=== PATIENT | male | born 1930 | race Hispanic/Latino ===

== ENCOUNTER 2018-03-27 02:30 | Inpatient (IN) | payer MEDICARE, BC ==
[2018-03-27 02:40] VITALS: BMI 28.3
[2018-03-27] MEDS ORDERED: Sodium Chloride 0.9% 1,000 ML IV STA ×2 (03:04→06:22)
--- NOTE | 2018-03-27 03:10 | ED PDOC ---
Arrival/HPI - General Chief Complaint: Medical Clearance Time Seen by Provider: 03/27/18 02:35 Historian: Patient, Spouse - History of Present Illness Narrative History of Present Illness (Text): 03/27/18 03:06 An 87 year old male, whose past medical history includes hypertension and diabetes, presents to the Emergency Department with a complaint of fleeting left sided chest pain. Patients notes that he has a history of feeling congested with a cough and subjective fever. He presents for further evaluation after having difficulty ambulating which the patient believe may be due to his rheumatoid arthritis. The patient denies chills, headache, dizziness, sore throat, shortness of breath, dyspnea on exertion, abdominal pain, nausea, vomiting, diarrhea, neck/back pain, urinary/bowel changes or any other complaint. PMD: Dr. Melendez Time/Duration: Prior to Arrival Symptom Onset: Sudden Symptom Course: Resolved Activities at Onset: Rest, Light Context: Home Past Medical History - Provider Review Nursing Documentation Reviewed: Yes - Infectious Disease Hx of Infectious Diseases: None - Tetanus Immunization Tetanus Immunization: Unknown - Cardiac Hx Hypertension: Yes - Endocrine/Metabolic Hx Hypothyroidism: Yes - Hematological/Oncological Hx Blood Transfusions: No Hx Blood Transfusion Reaction: No - Musculoskeletal/Rheumatological Hx Falls: No - Psychiatric Hx Substance Use: No - Surgical History Hx Appendectomy: Yes Hx Cardiac Catheterization: Yes Hx Coronary Stent: Yes Hx Inguinal Hernia Repair: (PRESENTS AT THIS TIME W/ INCARCERATED HERNIA) - Anesthesia Hx Anesthesia Reactions: No Hx Malignant Hyperthermia: No - Suicidal Assessment Feels Threatened In Home Enviroment: No Family/Social History - Physician Review Nursing Documentation Reviewed: Yes Family/Social History: No Known Family HX Smoking Status: Former Smoker Hx Alcohol Use: (OCCASIONAL) Hx Substance Use: No Hx Substance Use Treatment: No Allergies/Home Meds Allergies/Adverse Reactions: Allergies No Known Allergies Allergy (Verified 05/19/12 15:19) Home Medications: Home Meds Medication Instructions Recorded Confirmed Atorvastatin [Lipitor] 20 mg PO DAILY 05/19/12 03/27/18 Furosemide [Lasix] 40 mg PO DAILY 05/19/12 03/27/18 Glimepiride 4 mg PO DAILY 05/19/12 03/27/18 Levothyroxine Sodium [Levoxyl] 0.05 mg PO DAILY 05/19/12 03/27/18 Propranolol HCl [Propranolol ER] 60 mg PO DAILY 05/19/12 03/27/18 Quinapril Hydrochloride [Quinapril] 20 mg PO DAILY 05/19/12 03/27/18 Methotrexate [Methotrexate] 2.5 mg PO WED 03/27/18 03/27/18 Review of Systems - Physician Review All systems were reviewed & negative as marked: Yes - Review of Systems Constitutional: Fevers Respiratory: absent: SOB Cardiovascular: Chest Pain (Left sided chest pain). absent: CHA Gastrointestinal: absent: Abdominal Pain, Stool Changes, Diarrhea, Nausea, Vomiting Genitourinary Male: absent: Urinary Output Changes Musculoskeletal: absent: Back Pain, Neck Pain Neurological: Other (Difficulty ambulating). absent: Headache, Dizziness Physical Exam Vital Signs Reviewed: Yes Vital Signs Temp Pulse Resp BP Pulse Ox 03/27/18 06:02 99.8 F H 78 16 115/50 L 96 03/27/18 03:24 103.2 F H 03/27/18 03:13 103.2 F H 03/27/18 02:36 98.8 F 80 20 136/64 96 Temperature: Afebrile Blood Pressure: Normal Pulse: Regular Respiratory Rate: Normal Appearance: Positive for: Well-Appearing, Non-Toxic, Comfortable Pain Distress: None Mental Status: Positive for: Alert and Oriented X 3 - Systems Exam Head: Present: Atraumatic, Normocephalic Pupils: Present: PERRL Extroacular Muscles: Present: EOMI Conjunctiva: Present: Normal Mouth: Present: Moist Mucous Membranes Neck: Present: Normal Range of Motion. No: Meningeal Signs Respiratory/Chest: Present: Good Air Exchange, Rhonchi. No: Respiratory Distress, Accessory Muscle Use Cardiovascular: Present: Regular Rate and Rhythm, Normal S1, S2. No: Murmurs Abdomen: No: Tenderness, Distention, Peritoneal Signs Back: Present: Normal Inspection Upper Extremity: Present: Normal Inspection, Normal ROM (Full ROM). No: Cyanosis, Edema Lower Extremity: Present: Normal Inspection, Normal ROM (Full ROM). No: Edema Neurological: Present: GCS=15, CN II-XII Intact, Speech Normal Skin: Present: Warm, Dry, Normal Color. No: Rashes Psychiatric: Present: Alert, Oriented x 3, Normal Insight, Normal Concentration Medical Decision Making ED Course and Treatment: 03/27/18 03:12 Impression: An 87 year old male presents to the Emergency Department with a complaint of difficulty ambulating and left sided chest pain. Plan: -- EKG -- Chest X- Ray -- Labs -- Blood/ Urine Culture -- Urinalysis -- Tylenol and IV Fluids -- Reassess and disposition Progress Notes: 03/27/18 03:16 EKG: Ordered, reviewed, and independently interpreted the EKG. Rate : 94 BPM Rhythm : NSR Interpretation : Occasional PVCs, non- specific T wave changes. Comparison : No previous EKG for comparison. XR Chest, 1 View Dictated and Authenticated by: Anisa Gallagher MD 03/27/2018 5:58 AM Eastern Time ([place] & [place]) IMPRESSION: Mild bibasilar atelectasis/infiltrate or fibrosis. 03/27/18 06:26 Case was d/w who accepted to her service.Requested on consult. - Lab Interpretations Lab Results: 03/27/18 03:12 03/27/18 03:12 Lab Results 03/27/18 03:12: Sodium 142, Chloride 106, Potassium 3.5 L, Carbon Dioxide 24, Anion Gap 16, BUN 21, Creatinine 1.0, Est GFR ( Amer) > 60, Est GFR (Non- Af Amer) > 60, Random Glucose 165 H, Calcium 8.7, Phosphorus 2.2 L, Magnesium 1.7, Total Bilirubin 1.0, AST 18, ALT 15, Alkaline Phosphatase 51, Lactate Dehydrogenase 408, Total Creatine Kinase < 20 L, Troponin I 0.02, Total Protein 6.9, Albumin 3.7, Globulin 3.2, Albumin/Globulin Ratio 1.2 03/27/18 03:12: pO2 60 H, VBG pH 7.39, VBG pCO2 41.0, VBG HCO3 24.8, VBG Total CO2 26.1, VBG O2 Sat (Calc) 94.3 H, VBG Base Excess -0.2 L, VBG Potassium 3.4 L , Sodium 140.0, Chloride 108.0 H, Glucose 166 H, Lactate 1.9, FiO2 21.0, Venous Blood Potassium 3.4 L 03/27/18 03:12: PT 14.8 H, INR 1.29, APTT 29.3 03/27/18 03:12: WBC 16.1 H, RBC 5.02, Hgb 10.3 L, Hct 32.7 L, MCV 65.1 L, MCH 20.5 L, MCHC 31.5, RDW 16.2 H, Plt Count 282, MPV 10.1, Gran % 91.4 H, Lymph % ( Auto) 1.8 L, Sabine % (Auto) 6.6 H, Eos % (Auto) 0.1 L, Baso % (Auto) 0.1, Gran # 14.71 H, Lymph # (Auto) 0.3 L, Sabine # (Auto) 1.1 H, Eos # (Auto) 0.0, Baso # ( Auto) 0.01, Neutrophils % (Manual) 90 H, Band Neutrophils % 2, Lymphocytes % ( Manual) 2 L, Monocytes % (Manual) 5, Eosinophils % (Manual) 1, Platelet Evaluation Normal, Hypochromasia 1+, Poikilocytosis (manual Slight, Anisocytosis (manual) Slight 03/27/18 03:06: Urine Color Yellow, Urine Appearance Clear, Urine pH 6.0, Ur Specific Drain 1.020, Urine Protein Trace H, Urine Glucose (UA) Negative, Urine Ketones Negative, Urine Blood Negative, Urine Nitrate Negative, Urine Bilirubin Negative, Urine Urobilinogen 1.0 H, Ur Leukocyte Esterase Negative, Urine RBC 0 - 2, Urine WBC 0 - 2, Ur Epithelial Cells 0 - 2, Urine Bacteria Rare , Hyaline Casts 0 - 2, Urine Other Mucus I have reviewed the lab results: Yes - RAD Interpretation Radiology Orders: 03/27/18 03:03 CHEST PORTABLE [RAD] Stat - EKG Interpretation Interpreted by ED Physician: Yes Type: 12 lead EKG - Medication Orders Current Medication Orders: Acetaminophen (Tylenol 325mg Tab) 975 mg PO ONCE PRN PRN Reason: Fever >100.4 F Last Admin: 03/27/18 03:24 Dose: 975 mg MAR Pain/Vitals Document 03/27/18 03:24 IT (Rec: 03/27/18 03:24 IT [id number]) Vitals Temperature (97.6 F-99.6 F) 103.2 F Sodium Chloride (Sodium Chloride 0.9%) 1,000 mls @ 100 mls/hr IV .Q10H STA Stop: 03/27/18 16:21 Last Admin: 03/27/18 06:42 Dose: 100 mls/hr eMAR Start Stop Document 03/27/18 06:42 IT (Rec: 03/27/18 06:43 IT [id number]) Intravenous Solution Start Date 03/27/18 Start Time 06:42 Discontinued Medications Sodium Chloride (Sodium Chloride 0.9%) 1,000 mls @ 999 mls/hr IV .Q1H1M STA Stop: 03/27/18 04:04 Last Admin: 03/27/18 03:24 Dose: 999 mls/hr eMAR Start Stop Document 03/27/18 03:24 IT (Rec: 03/27/18 03:24 IT [id number]) Intravenous Solution Start Date 03/27/18 Start Time 03:24 End Date 03/27/18 End time 04:24 Total Infusion Time 60 Ceftriaxone Sodium (Rocephin 1 Gram Ivpb) 1 gm in 100 mls @ 200 mls/hr IV ONCE STA PRN Reason: Protocol Stop: 03/27/18 05:21 Last Admin: 03/27/18 05:08 Dose: 200 mls/hr eMAR Start Stop Document 03/27/18 05:08 IT (Rec: 03/27/18 05:08 IT [id number]) Intravenous Solution Start Date 03/27/18 Start Time 05:08 Azithromycin (Zithromax 500mg In Ns) 500 mg in 250 mls @ 166.667 mls/hr IV STAT STA PRN Reason: Protocol Stop: 03/27/18 06:21 Last Admin: 03/27/18 06:42 Dose: 166.667 mls/hr eMAR Start Stop Document 03/27/18 06:42 IT (Rec: 03/27/18 06:42 IT [id number]) Intravenous Solution Start Date 03/27/18 Start Time 06:42 - Scribe Statement The provider has reviewed the documentation as recorded by the Joel Arroyo Provider Scribe Attestation: All medical record entries made by the Scribe were at my direction and personally dictated by me. I have reviewed the chart and agree that the record accurately reflects my personal performance of the history, physical exam, medical decision making, and the department course for this patient. I have also personally directed, reviewed, and agree with the discharge instructions and disposition. Disposition/Present on Arrival - Present on Arrival Any Indicators Present on Arrival: No History of DVT/PE: No History of Uncontrolled Diabetes: No Urinary Catheter: No History of Decub. Ulcer: No History Surgical Site Infection Following: None - Disposition Have Diagnosis and Disposition been Completed?: Yes Diagnosis: Sepsis, Chest pain, Pneumonia Disposition: HOSPITALIZED Disposition Time: 05:30 Patient Problems: Current Active Problems Problem Status Onset Chest pain Acute Pneumonia Acute Sepsis Acute Condition: STABLE
[2018-03-27 03:24] LABS: BASO # 0.01 K/mm3 (0.0-2.0); BASO % 0.1 % (0.0-3.0); EOS % 0.1 % (1.5-5.0); GRAN # 14.71 (1.4-6.5); GRAN % 91.4 % (50.0-68.0); HEMOGLOBIN 10.3 g/dL (14.0-18.0); LYMPH # 0.3 (1.2-3.4); LYMPH % 1.8 % (22.0-35.0); MEAN CELL VOLUME 65.1 fl (80.0-105.0); MEAN CORPUSCULAR HEMOGLOBIN 20.5 pg (25.0-35.0); MEAN CORPUSCULAR HGB CONC 31.5 g/dl (31.0-37.0); MEAN PLATELET VOLUME 10.1 fl (7.0-11.0); MONO # 1.1 (0.1-0.6); MONO % 6.6 % (1.0-6.0); PLATELET COUNT 282 10^3/uL (120.0-450.0); RBC 5.02 10^6/uL (3.5-6.1); RED CELL DISTRIBUTION WIDTH 16.2 % (11.5-14.5); WHITE BLOOD COUNT 16.1 10^3/ul (4.5-11.0)
[2018-03-27 03:30] LABS: URINE BILIRUBIN NEGATIVE (NEGATIVE); URINE BLOOD NEGATIVE (NEGATIVE); URINE GLUCOSE (UA) NEGATIVE (NEGATIVE); URINE LEUKOCYTE ESTERASE NEGATIVE Leu/uL (NEGATIVE); URINE PROTEIN TRACE mg/dL (<30 mg/dL)
[2018-03-27 03:31] LABS: INR 1.29; PARTIAL THROMBOPLASTIN TIME 29.3 Seconds (25.1-36.5); PROTHROMBIN TIME 14.8 SECONDS (9.4-12.5)
[2018-03-27 03:32] LABS: ALB/GLOB RATIO 1.2 (1.1-1.8); ALBUMIN 3.7 g/dL (3.0-4.8); ALT/SGPT 15 U/L (7-56); AST/SGOT 18 U/L (17-59); BLOOD UREA NITROGEN 21 mg/dL (7-21); CALCIUM 8.7 mg/dL (8.4-10.5); GFR AFRICAN-AMERICAN > 60; GFR NON-AFRICAN AMERICAN > 60
[2018-03-27 03:34] LABS: URINE APPEARANCE CLEAR (CLEAR); URINE COLOR YELLOW (YELLOW)
[2018-03-27 03:34] LABS: VENOUS BLOOD GAS BASE EXCESS -0.2 mmol/L (0.0-2.0); VENOUS BLOOD GAS PO2 60 mm/Hg (30-55); VENOUS BLOOD PH 7.39 (7.32-7.43)
[2018-03-27 03:39] LABS: URINE BACTERIA RARE (NEG); URINE EPITHELIAL CELLS 0 - 2 /hpf (0-5); URINE HYALINE CAST 0 - 2 /hpf; URINE RBC 0 - 2 /hpf (0-2); URINE WBC 0 - 2 /hpf (0-6)
[2018-03-27 03:44] LABS: TROPONIN I 0.02 ng/mL
[2018-03-27] MEDS ORDERED: cefTRIAXone 1 gm 1 GM/100 ML BAG IV STA (04:52)
[2018-03-27] MEDS ORDERED: Azithromycin 500MG/NS 250ml 500 MG/250 ML BAG IV STA (04:52)
[2018-03-27 05:14] LABS: BAND 2 % (0-2); LYMPHOCYTE 2 % (22.0-35.0); NEUTROPHIL 90 % (50.0-70.0)
[2018-03-27 05:15] LABS: EOSINOPHIL 1 % (0.0-3.0); HYPOCHROMIA 1+; MONOCYTE 5 % (1.0-6.0); PLATELET ESTIMATE NORMAL (NORMAL)
[2018-03-27 05:16] LABS: ANISOCYTOSIS SLIGHT; POIKILOCYTOSIS SLIGHT
[2018-03-27] MEDS ORDERED: Potassium Chloride 20 mEq ER Tab PO ONE (11:24)
[2018-03-27] MEDS ORDERED: Albuterol-Ipratrop 3 mg / 0.5 (3 ml) UD IH PRN (12:11)
[2018-03-27] MEDS: Propranolol 60 mg ER Cap PO SCH (12:18)
--- NOTE | 2018-03-27 12:27 | RAD ---
Date of service: 03/27/2018 HISTORY: Sepsis Patient COMPARISON: 04/15/2014 FINDINGS: LUNGS: Minimal bibasilar densities most likely due to atelectasis PLEURA: No significant pleural effusion identified, no pneumothorax apparent. CARDIOVASCULAR: Mild cardiomegaly OSSEOUS STRUCTURES: No significant abnormalities. VISUALIZED UPPER ABDOMEN: Normal. OTHER FINDINGS: None. IMPRESSION: No focal consolidation to suggest pneumonia. Minimal bibasilar densities
[2018-03-27] MEDS: Albuterol-Ipratrop 3 mg / 0.5 (3 ml) UD IH SCH ×2 (13:30→19:26)
[2018-03-27] MEDS ORDERED: Pneumococcal 23-Valent Vaccine IM ONE (13:49)
--- NOTE | 2018-03-27 13:57 | CT ---
Date of service: 03/27/2018 PROCEDURE: CT Chest without contrast HISTORY: sob/fever COMPARISON: None available. TECHNIQUE: Contiguous axial images were obtained through the chest without intravenous contrast enhancement. Sagittal and coronal reconstructions were performed. Radiation dose (DLP): 614.72 mGy-cm. This CT exam was performed using one or more of the following dose reduction techniques: Automated exposure control, adjustment of the mA and/or kV according to patient size, and/or use of iterative reconstruction technique. FINDINGS: LUNGS: No pulmonary infiltrate. Minimal linear scar in posterior right lower lobe. No pulmonary mass. MEDIASTINUM: Small hiatal hernia. Mild cardiomegaly. Coronary arterial calcification. Dilatation of the main pulmonary artery to a diameter approximately 4.0 cm. This may correlate with pulmonary arterial hypertension. No aneurysmal dilatation of the ascending thoracic aorta. No lymphadenopathy. PLEURA: Small left pleural effusion mildly loculated along the lateral left base with fluid extending into the left major fissure. No right pleural effusion. No pneumothorax. BONES: No fracture. No destructive lesion. UPPER ABDOMEN: Cholelithiasis. No evidence of cholecystitis. OTHER FINDINGS: None. IMPRESSION: No pulmonary infiltrate. Small left pleural effusion with some questionable loculation at the lateral left lung base and fluid noted extending into the major fissure. Linear scar posterior right lung base. No pulmonary mass. Small hiatal hernia. Cholelithiasis. Dilated main pulmonary artery. This may correlate with pulmonary arterial hypertension.
[2018-03-27] MEDS: Potassium & Sodium Phosphate PO SCH ×2 (14:12→17:33)
--- NOTE | 2018-03-27 15:35 | CARD ---
APPROVED REPORT Date of service: 03/27/2018 EKG Measurement Heart [id number] <Conclusion> Sinus rhythm with occasional premature ventricular complexes Nonspecific T wave abnormality Abnormal ECG
--- NOTE | 2018-03-27 21:08 | HP ---
Copied To: Rasheed Powell MD Attending MD: Rasheed Powell MD HISTORY OF PRESENT ILLNESS: The patient is 87-year-old, came to emergency room because of left-sided chest pain. According to , he has been having cough, congestion, runny stuffy nose for sometime and she thinks that he had fever and chills at home going on for the last 3-4 days, so they brought him to emergency room for further evaluation. Denies any nausea or vomiting. No hemoptysis, no hematemesis. PAST MEDICAL HISTORY: Significant for: 1. Coronary artery disease, status post angioplasty. 2. Hypertension. 3. Hyperlipidemia. 4. Rheumatoid arthritis, on methotrexate. 5. Hypothyroidism. ALLERGIES: NOT ALLERGIC TO ANY MEDICATION. MEDICATIONS AT HOME: He is on quinapril 20 mg daily, glimepiride 4 mg daily, atorvastatin 20 mg daily, propranolol 60 mg daily, methotrexate 10 mg once daily, levothyroxine 50 mcg daily, Lasix 40 mg daily. SOCIAL HISTORY: He is , lives with his . He used to be heavy smoker, quit 19 years ago, socially drinks. REVIEW OF SYSTEMS: Significant for cough, congestion, wheezing. PHYSICAL EXAMINATION GENERAL: He is awake, alert, oriented, communicative. VITAL SIGNS: He has a temperature of 103.2, right now it is 97.7, pulse 62, respirations 17, blood pressure 119/58. LUNGS: Bilateral fair airflow. Few soft crackle at right base and the left lower lung area posteriorly. HEART: S1 and S2 audible. ABDOMEN: Soft. Nontender. No rebound, no guarding. NEUROLOGICAL: The patient is awake, alert, oriented, and communicative. LABORATORY DATA: WBC 16.1, hemoglobin 10.3, hematocrit 32.7, platelet 282. PT 14.8, INR 1.29. Chemistry: Sodium 142, potassium 3.5, chloride 106, CO2 of 24, BUN 21, creatinine 1, blood sugar 165, phosphorus 2.2. Urinalysis is unremarkable. Had x-ray chest done, which is pending. ASSESSMENT: 1. Community-acquired pneumonia, leukocytosis and fever of 103. 2. Hypertension. 3. Coronary artery disease. 4. Status post open heart surgery. 5. Hypothyroidism. 6. Hyperlipidemia. PLAN: We will restart the patient on aspirin. He has been started on propranolol. Potassium is supplemented. We will review his methotrexate that he takes weekly for rheumatoid arthritis. I will request for CT scan of the chest. We will start him on Rocephin and Zithromax and start him on nebulizer treatment. Followup electrolyte and CBC. Rasheed Powell MD
--- NOTE | 2018-03-27 22:23 | CON ---
Copied To: Waqar Childs MD Attending MD: Waqar Childs MD DATE: 03/27/2018 LOCATION: Patient is in room 271, bed 1. REASON FOR CONSULTATION: Fever, chills, cough, respiratory tract infection, coronary artery disease, history of stent insertion, diabetes mellitus, hypertension. HISTORY OF PRESENT ILLNESS: An 87-year-old male who known to have diabetes, hypertension and had coronary artery disease with stent insertion in the 1999 at [facility] in [place], admitted with the history that he developed runny nose followed by cough and yesterday he had 103 fever with chills. He denies any chest pain or palpitation. Patient also known to have rheumatoid arthritis and sees Dr. 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 Patient is also treated for CHF in 1999 when he had stent insertion. Yesterday, patient felt weak with the fever and chills, but today he states he is feeling better. Denies any shortness of breath. PAST MEDICAL HISTORY: Positive for diabetes mellitus; hypertension; coronary artery disease, status post stent insertion in the 1999 also had episode of CHF in the 1999; four years ago, patient had hernia surgery; known case of rheumatoid arthritis. PERSONAL HISTORY: Used to smoke about half pack a day but stopped 19 years ago, drinks socially. ALLERGIES: PATIENT DENIES ANY ALLERGIES. HOME MEDICATIONS: Included Lipitor 20 mg daily, Lasix 40 mg daily, glimepiride 4 mg daily, Levoxyl 0.05 mg p.o. daily, propranolol HCl, which is long acting propranolol ER 60 mg p.o. daily, quinapril hydrochloride, which is 20 mg p.o. daily, methotrexate 2.5 mg p.o. on Monday. REVIEW OF SYSTEMS: All other systems reviewed, positives mentioned in the history, others were negative. PHYSICAL EXAMINATION: VITAL SIGNS: Blood pressure 119/58, respirations 17, pulse 62, temperature 97.7. HEENT: Head is normocephalic. Eyes: Pupils normal. Conjunctivae pale. NECK: JVP low. Carotids equal. THORAX: AP diameter normal. LUNGS: No significant rales. CARDIOVASCULAR: S1 and S2. ABDOMEN: Soft, nontender. No organomegaly. Bowel sounds normal. EXTREMITIES: No clubbing. No cyanosis. LABORATORY DATA: WBC 16.1, hemoglobin 10.3, hematocrit 32.7, platelet 282, MCV and MCH are also low, but MCHC is normal, granulocyte 91.4. Sodium 142, potassium 3.5, BUN 21, creatinine 1. Random glucose 165. Phosphorous 2.2, which is low, magnesium 1.7. AST, ALT normal. Troponin 0.02. DIAGNOSTIC DATA: EKG shows sinus rhythm, PACs, possible old inferior wall ND, ST-T changes, poor R progression, V1 to V4. DIAGNOSES: Fever, chills, sepsis, respiratory tract infection, diabetes mellitus, hypertension, coronary artery disease, history of stent insertion in year 1999, history of congestive heart failure in the past, rheumatoid arthritis, anemia, hypokalemia, hypophosphatemia. PLAN: Patient received in the emergency room ceftriaxone 1 g IV and azithromycin 500 mg IV stat doses. We will continue his medications. Patient is also getting IV fluid therapy, we will stop that and we will give K therapy and phosphorous therapy along with Lipitor 20 mg daily; furosemide 40 daily; glimepiride 4 mg daily; Levoxyl 0.05 daily; propranolol HCl, long acting ER 60 mg daily; quinapril 20 mg daily. Patient does not want to do echo or stress test at this point. He states when he gets better, he will do as an outpatient, does not want any test at this point. Family also present, discussed with the family also. We will follow with you closely. Waqar Childs MD
[2018-03-28] MEDS: Albuterol-Ipratrop 3 mg / 0.5 (3 ml) UD IH SCH ×3 (02:20→19:32)
[2018-03-28 07:03] LABS: BASO # 0.01 K/mm3 (0.0-2.0); BASO % 0.1 % (0.0-3.0); EOS # 0.2 (0.0-0.7); EOS % 1.4 % (1.5-5.0); GRAN # 8.79 (1.4-6.5); GRAN % 83.9 % (50.0-68.0); HEMOGLOBIN 9.2 g/dL (14.0-18.0); LYMPH # 0.6 (1.2-3.4); LYMPH % 5.7 % (22.0-35.0); MEAN CELL VOLUME 64.6 fl (80.0-105.0); MEAN CORPUSCULAR HEMOGLOBIN 20.4 pg (25.0-35.0); MEAN CORPUSCULAR HGB CONC 31.5 g/dl (31.0-37.0); MEAN PLATELET VOLUME 9.5 fl (7.0-11.0); MONO # 0.9 (0.1-0.6); MONO % 8.9 % (1.0-6.0); RBC 4.52 10^6/uL (3.5-6.1); RED CELL DISTRIBUTION WIDTH 16.2 % (11.5-14.5); WHITE BLOOD COUNT 10.5 10^3/ul (4.5-11.0)
[2018-03-28 07:14] LABS: BLOOD UREA NITROGEN 14 mg/dL (7-21); CALCIUM 8.4 mg/dL (8.4-10.5); GFR AFRICAN-AMERICAN > 60; GFR NON-AFRICAN AMERICAN > 60; HDL CHOLESTEROL 34 mg/dL (29-60)
[2018-03-28 07:20] LABS: LDL CHOLESTEROL 62 mg/dL (0-129)
--- NOTE | 2018-03-28 07:44 | CP.PCM.PN ---
Subjective - Date & Time of Evaluation Date of Evaluation: 03/28/18 Time of Evaluation: 06:30 - Subjective Subjective: Awake, no distress ,denies chest pain Reason for consultation and follow up: Cardiac evaluation of left sided chest pain, history of feeling congested and cough, history of hypertension, diabetes mellitus Seen and examined by me and Dr. Ingram Objective - Vital Signs/Intake and Output Vital Signs (last 24 hours): Temp Pulse Resp BP Pulse Ox 98.4 F 73 20 138/74 95 03/28/18 06:00 03/28/18 06:00 03/28/18 06:00 03/28/18 06:00 03/28/18 06:00 Intake and Output: 03/28/18 03/28/18 06:59 18:59 Intake Total 300 Output Total 350 Balance -50 - Medications Medications: Current Medications Acetaminophen (Tylenol 325mg Tab) 975 mg PO ONCE PRN PRN Reason: Fever >100.4 F Last Admin: 03/27/18 03:24 Dose: 975 mg Albuterol/Ipratropium (Duoneb 3 Mg/0.5 Mg (3 Ml) Ud) 3 ml IH Q2H PRN PRN Reason: Shortness of Breath Albuterol/Ipratropium (Duoneb 3 Mg/0.5 Mg (3 Ml) Ud) 3 ml IH [id number] [facility] Last Admin: 03/28/18 02:20 Dose: Not Given Aspirin (Ecotrin) 81 mg PO DAILY [facility] Last Admin: 03/27/18 12:22 Dose: 81 mg Atorvastatin Calcium (Lipitor) 20 mg PO DIN [facility] Last Admin: 03/27/18 17:33 Dose: 20 mg Furosemide (Lasix) 40 mg PO DAILY [facility] Glimepiride (Amaryl) 4 mg PO DAILY [facility] Last Admin: 03/27/18 12:18 Dose: 4 mg Ceftriaxone Sodium (Rocephin 1 Gram Ivpb) 1 gm in 100 mls @ 100 mls/hr IVPB DAILY [facility] PRN Reason: Protocol Azithromycin (Zithromax 500mg In Ns) 500 mg in 250 mls @ 167 mls/hr IVPB DAILY [facility] PRN Reason: Protocol Methotrexate (Methotrexate) 10 mg PO QWK [facility] Potassium Phos/Sodium Phos (Neutra-Phos) 1 pkt PO TID [facility] Last Admin: 03/27/18 17:33 Dose: 1 pkt Propranolol HCl (Inderal La) 60 mg PO DAILY [facility] Last Admin: 03/27/18 12:18 Dose: 60 mg - Labs Labs: 03/28/18 06:30 03/28/18 06:30 PT 14.8 SECONDS (9.4-12.5) H 03/27/18 03:12 INR 1.29 03/27/18 03:12 APTT 29.3 Seconds (25.1-36.5) 03/27/18 03:12 - Constitutional Appears: No Acute Distress - Eye Exam Eye Exam: Normal appearance - ENT Exam ENT Exam: Mucous Membranes Moist - Respiratory Exam Respiratory Exam: Decreased Breath Sounds, NORMAL BREATHING PATTERN - Cardiovascular Exam Cardiovascular Exam: REGULAR RHYTHM, +S1, +S2 Additional comments: NSR 70's telemetry - GI/Abdominal Exam GI & Abdominal Exam: Soft, Normal Bowel Sounds - Extremities Exam Extremities Exam: Normal Capillary Refill - Neurological Exam Neurological Exam: Alert, Awake, Oriented x3 - Psychiatric Exam Psychiatric exam: Normal Affect - Skin Skin Exam: Dry, Intact, Warm Assessment and Plan - Assessment and Plan (Free Text) Assessment: A 87 year old male who came in to the ER due to left side chest pain,non radiating, runny nose, chest congestion and cough for the past 3-4 days with fever and chills. History of hypertension, diabetes mellitus,coronary artery disease post stent in 1999. history of congestive heart failure, rheumatoid arthritis. On IV antibiotics for respiratory tract infection. Plan: No respiratory distress Continue IV antibiotics as ordered Blood pressure and heart rate controlled Patient refusing ECHO and stress test, will order as out patient procedure Continue current treatment Continue current medications Replenish potassium 3.3 Will follow up Plan an\d treatment discussed with Dr. Ingram
[2018-03-28] MEDS ORDERED: Potassium Chloride 40 mEq/30 ml LIQ UD PO ONE (07:54)
[2018-03-28] MEDS: Potassium & Sodium Phosphate PO SCH ×3 (08:59→18:34)
[2018-03-28] MEDS: Propranolol 60 mg ER Cap PO SCH (08:59)
[2018-03-28] MEDS ORDERED: Azithromycin 500MG/NS 250ml 500 MG/250 ML BAG IVPB SCH (10:00)
[2018-03-28] MEDS ORDERED: cefTRIAXone 1 gm 1 GM/100 ML BAG IVPB SCH (10:00)
[2018-03-28] MEDS: Levothyroxine 50 MCG TAB PO SCH (11:02)
[2018-03-28] MEDS ORDERED: Potassium Chloride 20 mEq ER Tab PO ONE (13:43)
--- NOTE | 2018-03-28 16:33 | PN ---
Copied To: Rasheed Powell MD Attending MD: Rasheed Powell MD DATE: 03/28/2018 SUBJECTIVE: The patient is an 87 years old, seen and examined, doing well; has cough and congestion, mild shortness of breath, ambulating. PHYSICAL EXAMINATION: VITAL SIGNS: He is afebrile, pulse 66, respirations 20, blood pressure 159/70. LUNGS: Bilateral few soft crackle at bases posteriorly. HEART: S1 and S2 audible. ABDOMEN: Soft, nontender, obese. No hepatosplenomegaly. NEUROLOGICAL: He is awake, alert, oriented. Able to communicate. LABORATORY DATA: WBC is 10.5, hemoglobin 9.2, hematocrit 29.2, platelet of 240. Chemistry: Sodium 141, potassium 3.3, chloride 107, CO2 of 25, BUN 14, creatinine 0.8, blood sugar of 71. Had CT scan of the chest done that shows loculated pleural effusion at the left lung base. posterior right lung base. No lung mass. Positive cholelithiasis. ASSESSMENT: 1. Asthmatic bronchitis. 2. Leukocytosis. 3. Pleural effusion. 4. Hypertension. 5. Hyperlipidemia. 6. Hypothyroidism. 7. History of open-heart surgery. PLAN: We will discontinue telemetry, encourage ambulation, continue current antibiotics. The patient remains stable, possible discharge in the a.m. Rasheed Powell MD
[2018-03-29] MEDS: Albuterol-Ipratrop 3 mg / 0.5 (3 ml) UD IH SCH ×2 (01:14→08:00)
[2018-03-29 07:30] LABS: BLOOD UREA NITROGEN 15 mg/dL (7-21); CALCIUM 8.9 mg/dL (8.4-10.5); GFR AFRICAN-AMERICAN > 60; GFR NON-AFRICAN AMERICAN > 60
[2018-03-29] MEDS ORDERED: Potassium Chloride 20 mEq ER Tab PO SCH (08:00)
--- NOTE | 2018-03-29 08:00 | CP.PCM.PN ---
Subjective - Date & Time of Evaluation Date of Evaluation: 03/29/18 Time of Evaluation: 07:30 - Subjective Subjective: Awake, OOB to chair, wanted to go home, anxious Reason for consultation and follow up: Cardiac evaluation of left sided chest pain, history of feeling congested and cough, history of hypertension, diabetes mellitus Seen and examined by me and Dr. Ingram Objective - Vital Signs/Intake and Output Vital Signs (last 24 hours): Temp Pulse Resp BP Pulse Ox 98.1 F 67 19 149/83 99 03/28/18 17:29 03/28/18 17:29 03/28/18 17:29 03/28/18 17:29 03/28/18 17:29 - Medications Medications: Current Medications Acetaminophen (Tylenol 325mg Tab) 975 mg PO ONCE PRN PRN Reason: Fever >100.4 F Last Admin: 03/27/18 03:24 Dose: 975 mg Albuterol/Ipratropium (Duoneb 3 Mg/0.5 Mg (3 Ml) Ud) 3 ml IH Q2H PRN PRN Reason: Shortness of Breath Albuterol/Ipratropium (Duoneb 3 Mg/0.5 Mg (3 Ml) Ud) 3 ml IH [id number] [facility] Last Admin: 03/29/18 01:14 Dose: 3 ml Aspirin (Ecotrin) 81 mg PO DAILY [facility] Last Admin: 03/28/18 09:00 Dose: 81 mg Atorvastatin Calcium (Lipitor) 20 mg PO DIN [facility] Last Admin: 03/28/18 18:34 Dose: 20 mg Furosemide (Lasix) 40 mg PO DAILY [facility] Last Admin: 03/28/18 08:59 Dose: 40 mg Glimepiride (Amaryl) 2 mg PO DAILY [facility] Last Admin: 03/28/18 09:00 Dose: 2 mg Ceftriaxone Sodium (Rocephin 1 Gram Ivpb) 1 gm in 100 mls @ 100 mls/hr IVPB DAILY [facility] PRN Reason: Protocol Stop: 04/01/18 10:59 Last Admin: 03/28/18 09:00 Dose: 100 mls/hr Azithromycin (Zithromax 500mg In Ns) 500 mg in 250 mls @ 167 mls/hr IVPB DAILY [facility] PRN Reason: Protocol Last Admin: 03/28/18 09:00 Dose: 167 mls/hr Levothyroxine Sodium (Synthroid) 50 mcg PO DAILY [facility] Last Admin: 03/28/18 11:02 Dose: 50 mcg Methotrexate (Methotrexate) 10 mg PO QWK [facility] Potassium Chloride (K-Dur 20 Meq Er Tab) 20 meq PO BRK [facility] Potassium Phos/Sodium Phos (Neutra-Phos) 1 pkt PO TID [facility] Last Admin: 03/28/18 18:34 Dose: 1 pkt Propranolol HCl (Inderal La) 60 mg PO DAILY [facility] Last Admin: 03/28/18 08:59 Dose: 60 mg - Labs Labs: 03/28/18 06:30 03/29/18 06:45 PT 14.8 SECONDS (9.4-12.5) H 03/27/18 03:12 INR 1.29 03/27/18 03:12 APTT 29.3 Seconds (25.1-36.5) 03/27/18 03:12 - Constitutional Appears: No Acute Distress - Eye Exam Eye Exam: Normal appearance - ENT Exam ENT Exam: Mucous Membranes Moist - Respiratory Exam Respiratory Exam: Decreased Breath Sounds, Clear to Ausculation Bilateral, NORMAL BREATHING PATTERN - Cardiovascular Exam Cardiovascular Exam: +S1, +S2 - GI/Abdominal Exam GI & Abdominal Exam: Soft, Normal Bowel Sounds - Extremities Exam Extremities Exam: Normal Capillary Refill - Neurological Exam Neurological Exam: Alert, Awake, Oriented x3 - Psychiatric Exam Psychiatric exam: Normal Affect - Skin Skin Exam: Intact, Warm Assessment and Plan - Assessment and Plan (Free Text) Assessment: A 87 year old male who came in to the ER due to left side chest pain,non radiating, runny nose, chest congestion and cough for the past 3-4 days with fever and chills. History of hypertension, diabetes mellitus,coronary artery disease post stent in 1999. history of congestive heart failure, rheumatoid arthritis. On IV antibiotics for respiratory tract infection. Plan: OOB to chair, feels better, wanted to go home Blood pressure elevated this morning,SBP 170's, Hydralazine IV ordered Claimed that blood pressure is up because he can not sleep at night and wanted to go home and be relax. Continue IV antibiotics as ordered Will add Norvasc to control blood pressure Out patient ECHO and stress test Continue current treatment Continue current medications Possible discharge today Will follow up Plan an\d treatment discussed with Dr. Ingram
[2018-03-29 09:15] VITALS: RESP 20; TEMP 97.8; O2SAT 97
[2018-03-29] MEDS: Propranolol 60 mg ER Cap PO SCH (10:15)
[2018-03-29] MEDS: Potassium & Sodium Phosphate PO SCH (10:16)
[2018-03-29] MEDS: Levothyroxine 50 MCG TAB PO SCH (10:16)
[2018-03-29 10:22] VITALS: BP 140/88
[2018-03-29 10:41] VITALS: PULSE 104
--- NOTE | 2018-03-29 14:28 | DS ---
Copied To: Rasheed Powell MD Attending MD: Rasheed Powell MD HISTORY OF PRESENT ILLNESS: The patient is 87 years old, seen and examined, doing well, sitting by the window reading newspaper, scanty cough. No fever, no chills. No nausea, vomiting. No diarrhea. The patient initially came to Emergency Room because of high fever, shortness of breath, cough and congestion. PHYSICAL EXAMINATION: VITAL SIGNS: He is afebrile, pulse 104, respirations 18, blood pressure 140/88. LUNGS: Bilateral good airflow. No rhonchi or crackle. HEART: S1, S2 audible. ABDOMEN: Soft, nontender. No rebound, no guarding. NEUROLOGIC: The patient is awake, alert, oriented, communicative and moving all extremities. LABORATORY DATA: Sodium 142, potassium 3.8, chloride 108, CO2 24, BUN 15, creatinine 0.9, blood sugar of 99. ASSESSMENT AND PLAN: 1. Upper respiratory tract infection, chest pain noncardiac. 2. Leukocytosis, improved. 3. Coronary artery disease, status post angioplasty in 1999 in [facility]. PLAN: The patient is going to be discharged home on Levaquin 500 daily for five more days, he will be given Bromfed one teaspoon every 6 hours p.r.n. and Florinef one tablet daily for runny nose. He will resume all his medications as prior to admission that includes levothyroxine, Lasix, glimepiride, quinapril, atorvastatin, propranolol, methotrexate for rheumatoid arthritis. He will follow with his PMD. Rasheed Powell MD
== END 2018-03-29 11:33 | disposition home or self-care (01) | DRG 153 ==
LOC: ED 02:30 → ERH 05:19 → 2RSO 08:53 → 3RSO 03-28 13:29
PROVIDERS: ADMIT Internal Medicine; ATTEND Internal Medicine
DX: J06.9 Acute upper respiratory infection, unspecified (principal); J98.11 Atelectasis; M06.9 Rheumatoid arthritis, unspecified; I11.0 Hypertensive heart disease with heart failure; I50.9 Heart failure, unspecified; I25.10 Atherosclerotic heart disease of native coronary artery without angina pectoris; E11.9 Type 2 diabetes mellitus without complications; J45.909 Unspecified asthma, uncomplicated; E78.5 Hyperlipidemia, unspecified; E03.9 Hypothyroidism, unspecified; D72.829 Elevated white blood cell count, unspecified; Z79.84 Long term (current) use of oral hypoglycemic drugs; Z79.899 Other long term (current) drug therapy; Z87.891 Personal history of nicotine dependence; Z95.5 Presence of coronary angioplasty implant and graft